=== PATIENT | female | born 1985 | race Caucasian/White ===

== ENCOUNTER 2016-09-03 12:43 | Inpatient (IN) | payer OTHER ==
[2016-09-03 16:56] VITALS: BMI 26.6
--- NOTE | 2016-09-03 19:03 | HP ---
CIWA Score - CIWA Score Nausea/Vomitin-Mild Nausea/No Vomiting Muscle Tremors: 4-Moderate,w/Arms Extend Anxiety: 4-Mod. Anxious/Guarded Agitation: 4-Moderately Restless Paroxysmal Sweats: 1-Minimal Palms Moist Orientation: 0-Oriented Tacttile Disturbances: 0-None Auditory Disturbances: 0-None Visual Disturbances: 0-None Headache: 1-Very Mild CIWA-Ar Total Score: 15 Admission ROS BHS - HPI Chief Complaint: WITHDRAWAL SX Allergies/Adverse Reactions: Allergies Allergy/AdvReac Type Severity Reaction Status Date / Time No Known Allergies Allergy Verified 09/03/16 18:59 History of Present Illness: 31 YEARS OLD FEMALE WITH LONG HISTORY OF XANAX NICOTINE DEPENDENCE DENIES MEDICAL ISSUE HAS DEPRESSION IS ADMITTED TO DETOX Exam Limitations: No Limitations - Ebola screening Have you traveled outside of the country in the last 21 days: No Have you had contact with anyone from an Ebola affected area: No Have you been sick,other than usual withdrawal symptoms: No Do you have a fever: No - Review of Systems Constitutional: Chills, Changes in sleep, Weight Stable EENT: reports: No Symptoms Reported Respiratory: reports: No Symptoms reported Cardiac: reports: No Symptoms Reported GI: reports: Nausea, Poor Fluid Intake, Abdominal cramping : reports: No Symptoms Reported Musculoskeletal: reports: No Symptoms Reported, Back Pain, Joint Pain, Muscle Pain, Neck Pain Integumentary: reports: No Symptoms Reported Neuro: reports: Tremors Endocrine: reports: No Symptoms Reported Hematology: reports: No Symptoms Reported Psychiatric: reports: Judgement Intact, Orientated x3, Depressed Other Systems: Reviewed and Negative Patient History - Patient Medical History Hx Anemia: No Hx Asthma: No Hx Chronic Obstructive Pulmonary Disease (COPD): No Hx Cancer: No Hx Cardiac Disorders: No Hx Congestive Heart Failure: No Hx Hypertension: No Hx Hypercholesterolemia: No Hx Pacemaker: No HX Cerebrovascular Accident: No Hx Seizures: No Hx Dementia: No Hx Diabetes: No Hx Gastrointestinal Disorders: No Hx Liver Disease: No Hx Genitourinary Disorders: No Hx Sexually Transmitted Disorders: No Hx Renal Disease (ESRD): No Hx Thyroid Disease: No Hx Human Immunodeficiency Virus (HIV): No Hx Hepatitis C: Yes Hx Depression: Yes Hx Suicide Attempt: No Hx Bipolar Disorder: No Hx Schizophrenia: No - Patient Surgical History Past Surgical History: Yes Hx Section: Yes (2013) Anesthesia Reaction: No - PPD History Previous Implant?: Yes Documented Results: Negative w/o proof Implanted On Prior [facility] Admission?: No PPD to be Administered?: Yes - Reproductive History Patient is a Female of Child Bearing Age (11 -55 yrs old): Yes Last Menstrual Period: 08/12/16 Patient : No - Smoking Cessation Smoking history: Current every day smoker Have you smoked in the past 12 months: Yes Aproximately how many cigarettes per day: 4 Cigars Per Day: 0 Hx Chewing Tobacco Use: No Initiated information on smoking cessation: Yes 'Breaking Loose' booklet given: 09/03/16 - Substance & Tx. History Hx Alcohol Use: No Hx Substance Use: Yes Substance Use Type: Cocaine, Opiates, Tranquilizers Hx Substance Use Treatment: Yes - Substances Abused Alprazolam (Xanax) Route: Oral Frequency: Daily Amount used: 8 MG Age of first use: 30 Date of Last Use: 09/02/16 Cocaine Route: Smoking Frequency: 1-2 times per week Amount used: 200$ Age of first use: 29 Date of Last Use: 09/02/16 Family Disease History - Family Disease History Family History: Unremarkable Admission Physical Exam BHS - Vital Signs Vital Signs: Vital Signs - 24 hr 09/03/16 16:53 Temperature 96.1 F L Pulse Rate 67 Respiratory 20 Rate Blood Pressure 149/86 - Physical General Appearance: Yes: Nourished, Appropriately Dressed, Mild Distress, Tremorous, Irritable, Sweating, Anxious HEENTM: Yes: Hearing grossly Normal, Normal ENT Inspection, Normocephalic, Normal Voice Respiratory: Yes: Chest Non-Tender, Lungs Clear, Normal Breath Sounds, No Respiratory Distress, No Accessory Muscle Use Neck: Yes: Supple, Trachea in good position Breast: Yes: Breasts Symetrical Cardiology: Yes: Regular Rhythm, Regular Rate, S1, S2 Abdominal: Yes: Non Tender, Soft Genitourinary: Yes: Within Normal Limits Back: Yes: Normal Inspection Musculoskeletal: Yes: full range of Motion, Gait Steady Extremities: Yes: Normal Inspection, Normal Range of Motion, Non-Tender, Tremors Neurological: Yes: Alert, Motor Strength 5/5, Normal Response, Depressed Affect Integumentary: Yes: Warm Lymphatic: Yes: Within Normal Limits - Diagnostic (1) Sedative, hypnotic or anxiolytic dependence with withdrawal, uncomplicated Current Visit: Yes Status: Acute (2) Nicotine dependence Current Visit: Yes Status: Acute Qualifiers: Nicotine product type: cigarettes Substance use status: in withdrawal Qualified Code(s): F17.213 - Nicotine dependence, cigarettes, with withdrawal (3) Hepatitis C antibody test positive Current Visit: Yes Status: Chronic Comment: SCHEDULE TO TREAT (4) Depression (emotion) Current Visit: Yes Status: Suspected Qualifiers: Depression Type: dysthymia Qualified Code(s): F34.1 - Dysthymic disorder (5) Methadone maintenance therapy patient Current Visit: Yes Status: Chronic Comment: 165 MG VERIFICATION PENDING Cleared for Admission S - Detox or Rehab [facility] Level of Care: Medically Managed Detox Regimen/Protocol: Valium S Breath Alcohol Content Breath Alcohol Content: 0 Urine Pregancy Test - Result Urine Test Results: Negative- NO Line Present Urine Drug Screen - Results Drug Screen Negative: No Urine Drug Screen Results: HOLGER-Cocaine, OPI-Opiates, BZO-Benzodiazepines, MTD- Methadone
[2016-09-03] MEDS ORDERED: MAG HYDROX/AL HYDROX/SIMETH 30 ML UNIT-DOSE CUP PO PRN (19:10)
[2016-09-03] MEDS ORDERED: P-EPHED 60MG/TRIPROLIDI 2.5MG TABLET PO PRN (19:10)
[2016-09-03] MEDS ORDERED: MAGNESIUM HYDROX 2400MG/30ML ORAL SUSPENSION 30 ML CUP PO PRN (19:10)
[2016-09-03] MEDS ORDERED: LOPERAMIDE HCL 2 MG CAPSULE PO PRN (19:10)
[2016-09-03] MEDS ORDERED: ACETAMINOPHEN 325 MG TABLET (FP) PO PRN (19:10)
[2016-09-03] MEDS ORDERED: diazePAM 5 MG TABLET PO ONE (19:10)
[2016-09-03] MEDS ORDERED: MAGNESIUM CITRATE 300 ML BOTTLE PO PRN (19:10)
[2016-09-03] MEDS ORDERED: MENTHOL/PHENOL 1 EACH UD MM PRN (19:10)
[2016-09-03] MEDS ORDERED: IBUPROFEN 400 MG TABLET (FP) PO PRN (19:10)
[2016-09-03] MEDS ORDERED: hydrOXYzine PAMOATE 50 MG CAPSULE (FP) PO PRN (19:10)
[2016-09-03] MEDS: THIAMINE HCL 100 MG TABLET (FP) PO SCH (22:42)
[2016-09-03] MEDS: diphenhydrAMINE HCL 50 MG CAPSULE PO PRN (22:42)
[2016-09-03] MEDS: diazePAM 5 MG TABLET PO SCH (22:44)
[2016-09-04 00:20] LABS: URINE APPEARANCE CLOUDY; URINE BILIRUBIN NEGATIVE (NEGATIVE); URINE BLOOD NEGATIVE (NEGATIVE); URINE COLOR DKYELLOW; URINE GLUCOSE (UA) NEGATIVE (NEGATIVE); URINE KETONE 1+ (NEGATIVE); URINE NITRITE NEGATIVE (NEGATIVE); URINE PROTEIN NEGATIVE (NEGATIVE); URINE UROBILINOGEN NEGATIVE E.U./dl (0.2-1.0)
[2016-09-04 00:24] LABS: URINE LEUK ESTERASE 2+ (NEGATIVE)
[2016-09-04 00:27] LABS: URINE MUCUS MANY; URINE RBC 27 /hpf (0-3); URINE WBC 15 /hpf (3-5)
[2016-09-04] MEDS: diazePAM 5 MG TABLET PO SCH ×3 (05:21→22:30)
--- NOTE | 2016-09-04 06:50 | CONSULT ---
[facility] Psychiatric Consult - Data Date of interview: 09/04/16 Admission source: [facility] Identifying data: This is 31 years old female with no psychiatric hospitalization history intoxicated with: Cocaine, Xanax, Opioids and Nicotine Substance Abuse History: Urine Drug Screen Results: HOLGER-Cocaine, OPI-Opiates, BZO-Benzodiazepines, MTD-Methadone, reports 165mg per day history. - Smoking Cessation. Smoking history: Current every day smoker. Have you smoked in the past 12 months: Yes. Aproximately how many cigarettes per day: 4. Cigars Per Day: 0. Hx Chewing Tobacco Use: No. Initiated information on smoking cessation : Yes. 'Breaking Loose' booklet given: 09/03/16. - Substance & Tx. History. Hx Alcohol Use: No. Hx Substance Use: Yes. Substance Use Type: Cocaine, Opiates, Tranquilizers. Hx Substance Use Treatment: Yes. - Substances Abused. Alprazolam (Xanax). Route: Oral. Frequency: Daily. Amount used: 8 MG. Age of first use: 30. Date of Last Use: 09/02/16. Cocaine. Route: Smoking. Frequency: 1-2 times per week. Amount used: 200$. Age of first use: 29. Date of Last Use: 09/02/16 Medical History: HepC+, MMTP 165 per day history Psychiatric History: Patient reports history of depression, reports no medications taking prior to admission Physical/Sexual Abuse/Trauma History: Denies Additional Comment: Urine Drug Screen Results: HOLGER-Cocaine, OPI-Opiates, BZO- Benzodiazepines, MTD-Methadone. Observation. Detox Unit Care Protocol Mental Status Exam - Mental Status Exam Alert and Oriented to: Person Cognitive Function: Fair Patient Appearance: Unkempt Mood: Sad Affect: Flat Patient Behavior: Sedated Speech Pattern: Delayed Voice Loudness: Mildly Soft/Quiet Thought Process: Circumstantial Thought Disorder: Being Controlled Hallucinations: Denies Suicidal Ideation: Denies Homicidal Ideation: Denies Insight/Judgement: Fair Sleep: Difficulty falling asleep Appetite: Fair Muscle strength/Tone: Mild Hypotonicity Gait/Station: Shuffling Additional Comments: Observation. Detox Unit Care Protocol Psychiatric Findings - Problem List ([place] 1, 2,3) (1) Nicotine dependence Current Visit: Yes Status: Acute Qualifiers: Nicotine product type: cigarettes Substance use status: in withdrawal Qualified Code(s): F17.213 - Nicotine dependence, cigarettes, with withdrawal (2) Sedative, hypnotic or anxiolytic dependence with withdrawal, uncomplicated Current Visit: Yes Status: Acute (3) Methadone maintenance therapy patient Current Visit: Yes Status: Chronic Comment: 165 MG VERIFICATION PENDING (4) Opioid dependence Current Visit: Yes Status: Acute - Initial Treatment Plan Initial Treatment Plan: Observation. Detox Unit Care Protocol
[2016-09-04 10:03] LABS: MCH 27.2 pg (25.7-33.7); MCHC 33.7 g/dl (32.0-36.0); MEAN CELL VOLUME 80.8 fl (80-96); MEAN PLT VOLUME 9.4 fl (7.5-11.1); PLATELET COUNT 295 K/MM3 (134-434); RDW 13.4 % (11.6-15.6); WHITE BLOOD COUNT 8.7 K/mm3 (4.0-10.0)
[2016-09-04] MEDS ORDERED: METHADONE HCL 10 MG TABLET PO ONE (10:25)
[2016-09-04] MEDS: PRENATAL VITAMINS W/ FOLIC ACID TABLET (FP) PO SCH (10:26)
[2016-09-04] MEDS: NICOTINE 14 MG/24 HOURS TOPICAL PATCH TD SCH (10:27)
[2016-09-04] MEDS: diazePAM 5 MG TABLET PO PRN ×2 (10:31→18:26)
[2016-09-04] MEDS ORDERED: METHADONE 160 MG, METHADONE 5 MG PO ONE (10:35)
[2016-09-04 10:45] LABS: ALBUMIN 4.6 g/dl (3.4-5.0); ALK PHOS 85 U/L (45-117); ANION GAP 12 (8-16); BILIRUBIN,TOTAL 0.6 mg/dL (0.2-1.0); CALCIUM 9.7 mg/dL (8.5-10.1); CO2 25 mmol/L (21-32); CREATININE 0.8 mg/dL (0.55-1.02); GLUCOSE,RANDOM 95 mg/dL (74-106); SGOT/AST 17 U/L (15-37); SGPT/ALT 15 U/L (12-78); TOT PROT 8.2 g/dl (6.4-8.2)
[2016-09-04] MEDS ORDERED: METHADONE HCL 40 MG DISPERSABLE TABLET ONE (10:49)
[2016-09-04] MEDS ORDERED: METHADONE HCL 5 MG TABLET ONE (10:50)
--- NOTE | 2016-09-04 11:00 | PN ---
S CIWA - CIWA Score Nausea/Vomitin Muscle Tremors: 3 Anxiety: 3 Agitation: 3 Paroxysmal Sweats: 2 Orientation: 0-Oriented Tacttile Disturbances: 1-Very Mild Itch/Numbness Auditory Disturbances: 1-Very Mild Visual Disturbances: 1-Very Mild Sensitivity Headache: 2-Mild CIWA-Ar Total Score: 19 S Progress Note (SOAP) Subjective: ALERT,IRRITABLE,ANXIOUS,TREMOR,INTERRUPTED SLEEP,PAIN IN THE BODY,NASAL CONGESTION,SEASONAL ALLERGY Objective: 09/04/16 10:56 Vital Signs Temperature 98.2 F 09/04/16 10:01 Pulse Rate 69 09/04/16 10:01 Respiratory Rate 16 09/04/16 10:01 Blood Pressure 136/82 09/04/16 10:01 O2 Sat by Pulse Oximetry (%) EKG NSR,INVERTED T IN V2 NO CHEST PAIN,NO SOB,NO DIZZINESS Laboratory Last Values WBC 8.7 K/mm3 (4.0-10.0) 09/04/16 06:00 RBC 4.43 M/mm3 (3.60-5.2) 09/04/16 06:00 Hgb 12.1 GM/dL (10.7-15.3) 09/04/16 06:00 Hct 35.8 % (32.4-45.2) 09/04/16 06:00 MCV 80.8 fl (80-96) 09/04/16 06:00 MCHC 33.7 g/dl (32.0-36.0) 09/04/16 06:00 RDW 13.4 % (11.6-15.6) 09/04/16 06:00 Plt Count 295 K/MM3 (134-434) 09/04/16 06:00 MPV 9.4 fl (7.5-11.1) 09/04/16 06:00 Sodium 138 mmol/L (136-145) 09/04/16 06:00 Potassium 3.7 mmol/L (3.5-5.1) 09/04/16 06:00 Chloride 101 mmol/L (98-107) 09/04/16 06:00 Carbon Dioxide 25 mmol/L (21-32) 09/04/16 06:00 Anion Gap 12 (8-16) 09/04/16 06:00 BUN 6 mg/dL (7-18) L 09/04/16 06:00 Creatinine 0.8 mg/dL (0.55-1.02) 09/04/16 06:00 Creat Clearance w eGFR > 60 (>60) 09/04/16 06:00 Random Glucose 95 mg/dL (74-106) 09/04/16 06:00 Calcium 9.7 mg/dL (8.5-10.1) 09/04/16 06:00 Total Bilirubin 0.6 mg/dL (0.2-1.0) 09/04/16 06:00 AST 17 U/L (15-37) 09/04/16 06:00 ALT 15 U/L (12-78) 09/04/16 06:00 Alkaline Phosphatase 85 U/L (45-117) 09/04/16 06:00 Total Protein 8.2 g/dl (6.4-8.2) 09/04/16 06:00 Albumin 4.6 g/dl (3.4-5.0) 09/04/16 06:00 Urine Color Dkyellow 09/03/16 23:16 Urine Appearance Cloudy 09/03/16 23:16 Urine pH 6.0 (5.0-8.0) 09/03/16 23:16 Urine Protein Negative (NEGATIVE) 09/03/16 23:16 Urine Glucose (UA) Negative (NEGATIVE) 09/03/16 23:16 Urine Ketones 1+ (NEGATIVE) H 09/03/16 23:16 Urine Blood Negative (NEGATIVE) 09/03/16 23:16 Urine Nitrite Negative (NEGATIVE) 09/03/16 23:16 Urine Bilirubin Negative (NEGATIVE) 09/03/16 23:16 Urine Urobilinogen Negative E.U./dl (0.2-1.0) 09/03/16 23:16 Ur Leukocyte Esterase 2+ (NEGATIVE) H 09/03/16 23:16 Urine RBC 27 /hpf (0-3) 09/03/16 23:16 Urine WBC 15 /hpf (3-5) 09/03/16 23:16 Ur Epithelial Cells Many /hpf (FEW) 09/03/16 23:16 Urine Mucus Many 09/03/16 23:16 Assessment: 09/04/16 10:59 WITHDRAWAL SYMPTOM Plan: CONTINUE DETOX,REPEAT UA TODAY,ENCOURAGE ORAL FLUID
--- NOTE | 2016-09-04 11:42 | EKG ---
Test Reason : Blood Pressure : / mmHG Vent. Rate : 063 BPM Atrial Rate : 063 BPM P-R Int : 140 ms QRS Dur : 092 ms QT Int : 458 ms P-R-T Axes : 015 065 050 degrees QTc Int : 468 ms NORMAL SINUS RHYTHM MINIMAL VOLTAGE CRITERIA FOR LVH, MAY BE NORMAL VARIANT SEPTAL INFARCT , AGE UNDETERMINED ABNORMAL ECG NO PREVIOUS ECGS AVAILABLE Confirmed by FABIANA ALEXANDRE MD ([id number]) on 09/04/2016 11:42:07 AM Referred By: Confirmed By:FABIANA ALEXANDRE MD
[2016-09-04] MEDS: diphenhydrAMINE HCL 25 MG CAPSULE (FP) PO PRN (14:13)
[2016-09-04] MEDS: diphenhydrAMINE HCL 50 MG CAPSULE PO PRN (22:30)
[2016-09-04] MEDS: THIAMINE HCL 100 MG TABLET (FP) PO SCH (22:30)
[2016-09-04] MEDS: NICOTINE POLACRILEX 2 MG GUM BC PRN (22:30)
[2016-09-05] MEDS ORDERED: METHADONE HCL 5 MG TABLET ONE (05:30)
[2016-09-05] MEDS ORDERED: METHADONE HCL 40 MG DISPERSABLE TABLET ONE (05:30)
[2016-09-05] MEDS: METHADONE 160 MG, METHADONE 5 MG PO SCH (05:41)
[2016-09-05] MEDS: diazePAM 5 MG TABLET PO PRN (05:45)
[2016-09-05] MEDS ORDERED: METHADONE HCL 10 MG TABLET PO SCH (06:00)
[2016-09-05] MEDS: NICOTINE POLACRILEX 2 MG GUM BC PRN ×2 (07:23→22:48)
[2016-09-05] MEDS: PRENATAL VITAMINS W/ FOLIC ACID TABLET (FP) PO SCH (10:27)
[2016-09-05] MEDS: diazePAM 5 MG TABLET PO SCH ×2 (10:27→22:48)
[2016-09-05] MEDS: NICOTINE 14 MG/24 HOURS TOPICAL PATCH TD SCH (10:27)
[2016-09-05] MEDS: CYCLOBENZAPRINE HCL 10 MG TABLET (FP) PO PRN ×2 (10:29→22:49)
[2016-09-05] MEDS: diphenhydrAMINE HCL 25 MG CAPSULE (FP) PO PRN (10:29)
--- NOTE | 2016-09-05 10:33 | PN ---
S CIWA - CIWA Score Nausea/Vomitin Muscle Tremors: 3 Anxiety: 3 Agitation: 2 Paroxysmal Sweats: 1-Minimal Palms Moist Orientation: 0-Oriented Tacttile Disturbances: 1-Very Mild Itch/Numbness Auditory Disturbances: 1-Very Mild Visual Disturbances: 1-Very Mild Sensitivity Headache: 2-Mild CIWA-Ar Total Score: 17 BHS Progress Note (SOAP) Subjective: ALERT,IRRITABLE,ANXIOUS,INTERRUPTED SLEEP,TREMOR,PAIN IN THE BODY AND BACK Objective: 09/05/16 10:31 Vital Signs Temperature 98.4 F 09/05/16 09:35 Pulse Rate 75 09/05/16 09:35 Respiratory Rate 18 09/05/16 09:35 Blood Pressure 131/81 09/05/16 09:35 O2 Sat by Pulse Oximetry (%) Assessment: 09/05/16 10:32 WITHDRAWAL SYMPTOM Plan: CONTINUE DETOX,REPEAT UA PENDING
[2016-09-05 15:12] LABS: URINE APPEARANCE SLCLOUDY; URINE BILIRUBIN NEGATIVE (NEGATIVE); URINE BLOOD NEGATIVE (NEGATIVE); URINE COLOR YELLOW; URINE GLUCOSE (UA) NEGATIVE (NEGATIVE); URINE KETONE NEGATIVE (NEGATIVE); URINE NITRITE NEGATIVE (NEGATIVE); URINE PROTEIN NEGATIVE (NEGATIVE); URINE UROBILINOGEN 4.0 E.U/dl E.U./dl (0.2-1.0)
[2016-09-05 15:29] LABS: URINE LEUK ESTERASE 1+ (NEGATIVE)
[2016-09-05 15:57] LABS: CALCIUM OXALATE CRYSTALS RARE /hpf (NONE SEEN); URINE MUCUS MODERATE; URINE RBC 2 /hpf (0-3); URINE WBC 1 /hpf (3-5)
[2016-09-05] MEDS: THIAMINE HCL 100 MG TABLET (FP) PO SCH (22:48)
[2016-09-05] MEDS: diphenhydrAMINE HCL 50 MG CAPSULE PO PRN (22:50)
[2016-09-06] MEDS ORDERED: METHADONE HCL 40 MG DISPERSABLE TABLET ONE (03:50)
[2016-09-06] MEDS ORDERED: METHADONE HCL 5 MG TABLET ONE (03:50)
[2016-09-06] MEDS: METHADONE 160 MG, METHADONE 5 MG PO SCH (05:06)
[2016-09-06] MEDS: diazePAM 5 MG TABLET PO PRN ×2 (05:09→17:35)
[2016-09-06] MEDS: guaiFENesin/D-METHORPHAN HB 10 ML UNIT-DOSE CUPS PO PRN ×2 (05:10→17:33)
--- NOTE | 2016-09-06 10:24 | PN ---
S Progress Note (SOAP) Subjective: ALERT,IRRITABLE,ANXIOUS,INTERRUPTED SLEEP Objective: 09/06/16 10:24 Vital Signs Temperature 100.8 F H 09/06/16 10:02 Pulse Rate 105 H 09/06/16 10:02 Respiratory Rate 20 09/06/16 10:02 Blood Pressure 121/69 09/06/16 10:02 O2 Sat by Pulse Oximetry (%) Assessment: 09/06/16 10:25 WITHDRAWAL SYMPTOM Plan: CONTINUE DETOX,DISCHARGE IN AM
[2016-09-06] MEDS: NICOTINE 14 MG/24 HOURS TOPICAL PATCH TD SCH (10:28)
[2016-09-06] MEDS: diazePAM 5 MG TABLET PO SCH ×2 (10:28→22:23)
[2016-09-06] MEDS: PRENATAL VITAMINS W/ FOLIC ACID TABLET (FP) PO SCH (10:28)
[2016-09-06] MEDS: CYCLOBENZAPRINE HCL 10 MG TABLET (FP) PO PRN ×2 (17:35→22:23)
[2016-09-06] MEDS: THIAMINE HCL 100 MG TABLET (FP) PO SCH (22:23)
[2016-09-06] MEDS: diphenhydrAMINE HCL 50 MG CAPSULE PO PRN (22:23)
[2016-09-06] MEDS: NICOTINE POLACRILEX 2 MG GUM BC PRN (22:26)
[2016-09-07] MEDS ORDERED: METHADONE HCL 5 MG TABLET ONE (04:23)
[2016-09-07] MEDS ORDERED: METHADONE HCL 40 MG DISPERSABLE TABLET ONE (04:23)
[2016-09-07] MEDS: METHADONE 160 MG, METHADONE 5 MG PO SCH (05:14)
[2016-09-07] MEDS: CYCLOBENZAPRINE HCL 10 MG TABLET (FP) PO PRN (05:16)
[2016-09-07] MEDS: NICOTINE POLACRILEX 2 MG GUM BC PRN (05:16)
[2016-09-07 06:11] VITALS: BP 129/73; PULSE 81; TEMP 98.2
--- NOTE | 2016-09-07 08:08 | PN ---
S Progress Note (SOAP) Subjective: ALERT,NO COMPLAINT Objective: 09/07/16 08:06 Vital Signs Temperature 98.2 F 09/07/16 06:10 Pulse Rate 81 09/07/16 06:10 Respiratory Rate 18 09/07/16 06:10 Blood Pressure 129/73 09/07/16 06:10 O2 Sat by Pulse Oximetry (%) Assessment: 09/07/16 08:06 DETOX COMPLETED,NO WITHDRAWAL SYMPTOM Plan: DISCHARGE TODAY,FOLLOW UP WITH AFTER CARE PROGRAM ARRANGEMENT
--- NOTE | 2016-09-07 08:10 | DS ---
[facility] Detox Discharge Summary Admission Date: 09/03/16 Discharge Date: 09/07/16 - History Present History: Sedative Dependence, MMTP Additional Comments: FOLLOW UP WITH AFTER CARE PROGRAM ARRANGEMENT Pertinent Past History: NICOTINE DEPENDENCE HEPATITIS C - Physical Exam Results Vital Signs: Vital Signs Temperature 98.2 F 09/07/16 06:10 Pulse Rate 81 09/07/16 06:10 Respiratory Rate 18 09/07/16 06:10 Blood Pressure 129/73 09/07/16 06:10 O2 Sat by Pulse Oximetry (%) Pertinent Admission Physical Exam Findings: WITHDRAWAL SYMPTOM - Treatment Hospital Course: Detox Protocol Followed, Detoxed Safely, Responded well, Discharged Condition Good Patient has Accepted a Rehab Referral to: [facility]ED - Medication Discharge Medications: Ambulatory Orders Methadone [Dolophine -] 165 mg PO DAILY 09/03/16 - AMA Did Patient Leave Against Medical Advice: No
[2016-09-07] MEDS ORDERED: diazePAM 5 MG TABLET PO SCH (10:00)
== END 2016-09-07 06:48 | disposition home or self-care (01) | DRG 773 ==
LOC: YASAS 12:43 → Y6N 19:20
PROVIDERS: ADMIT Internal Medicine; ATTEND Internal Medicine
PROC: HZ2ZZZZ Detoxification Services for Substance Abuse Treatment (ICD-10-PCS; principal; 2016-09-03)
DX: F13.230 Sedative, hypnotic or anxiolytic dependence with withdrawal, uncomplicated (principal); F11.20 Opioid dependence, uncomplicated; F17.213 Nicotine dependence, cigarettes, with withdrawal; F34.1 Dysthymic disorder; B18.2 Chronic viral hepatitis C
CPT/HCPCS: 36415; 80053; 81003; 81015; 85027; 86593; 93005; 93010

== ENCOUNTER 2017-01-15 12:16 | Inpatient (IN) | payer OTHER ==
[2017-01-15 13:28] VITALS: BMI 24.9
--- NOTE | 2017-01-15 15:29 | HP ---
CIWA Score - CIWA Score Nausea/Vomitin-Int. Nausea w/Dry Heave Muscle Tremors: 3 Anxiety: 4-Mod. Anxious/Guarded Agitation: 2 Paroxysmal Sweats: 3 Orientation: 0-Oriented Tacttile Disturbances: 2-Mild Itch/Numbness/Burn Auditory Disturbances: 0-None Visual Disturbances: 2-Mild Sensitivity Headache: 2-Mild CIWA-Ar Total Score: 22 Admission ROS S - HPI Chief Complaint: "I need to Detox and then hopefully get into a long-term rehab program." Pt. is here to Detox from Alcohol. Allergies/Adverse Reactions: Allergies Allergy/AdvReac Type Severity Reaction Status Date / Time No Known Allergies Allergy Verified 09/03/16 18:59 History of Present Illness: Pt, is a 31 YO female here to Detox from alcohol. Pt. has had 1 previous Detox admission at [facility] (08/2016). [facility]. [facility] a [facility] ([place], [place] Daily Dose: 165 mg PO Daily; Last Day medicated: 01/15/2017, Verification Pending). - Ebola screening Have you traveled outside of the country in the last 21 days: No Have you had contact with anyone from an Ebola affected area: No Have you been sick,other than usual withdrawal symptoms: No Do you have a fever: No - Review of Systems Constitutional: Chills, Diaphoresis, Fever, Loss of Appetite, Malaise, Night Sweats, Changes in sleep EENT: reports: Blurred Vision, Hearing Loss (Partial, Right Ear.), Dental Problems (Broken tooth, Loweer Left side. Patient reports that she is okay to chew solid food.) Respiratory: reports: Cough Cardiac: reports: No Symptoms Reported, Other (Murmur, Since .) GI: reports: Nausea, Poor Appetite, Vomiting, Indigestion, Abdominal cramping : reports: Urgency, Other (Patient reports "foul odor" to urine. URINE C + S to be ordered along with Admission UA.) Musculoskeletal: reports: Back Pain, Joint Pain, Muscle Pain, Joint Stiffness Integumentary: reports: Sweating Neuro: reports: Headache (Occasional migraines.), Numbness (Occasional in bilateral arms.), Tingling (Occasional in bilateral arms.), Tremors Endocrine: reports: No Symptoms Reported Hematology: reports: Anemia (Iron-Deficiency type, in past.), Easy Bruising Psychiatric: reports: Judgement Intact, Orientated x3, Anxious, Depressed ( Primarily due to Drug use; Zoloft and Wellbutrin in past; not currently. Pt. declines Psych. consultation for this Detox admission.) Other Systems: Reviewed and Negative Patient History - Patient Medical History Hx Anemia: Yes (Iron-Deficiency type; has taken Iron supplements in past.) Hx Asthma: No Hx Chronic Obstructive Pulmonary Disease (COPD): No Hx Cancer: No Hx Cardiac Disorders: No Hx Congestive Heart Failure: No Hx Hypertension: No Hx Hypercholesterolemia: No Hx Pacemaker: No HX Cerebrovascular Accident: No Hx Seizures: No Hx Dementia: No Hx Diabetes: No Hx Gastrointestinal Disorders: No Hx Liver Disease: No Hx Genitourinary Disorders: No Hx Sexually Transmitted Disorders: No Hx Renal Disease (ESRD): No Hx Thyroid Disease: No Hx Human Immunodeficiency Virus (HIV): No (Last Tested: 12/2016: NEGATIVE.) Hx Hepatitis C: Yes (Diagnosed: 2011. Currently Undetactable Viral Load without Treatment.) Hx Depression: Yes (Medication in past; not current.) Hx Suicide Attempt: No (PATIENT DENIES CURRENT SI / HI.) Hx Bipolar Disorder: No Hx Schizophrenia: No Other Medical History: DENIES. - Patient Surgical History Past Surgical History: Yes Hx Neurologic Surgery: No Hx Cataract Extraction: No Hx Cardiac Surgery: No Hx Lung Surgery: No Hx Breast Surgery: No Hx Breast Biopsy: No Hx Abdominal Surgery: No Hx Appendectomy: No Hx Cholecystectomy: No Hx Genitourinary Surgery: No Hx Section: Yes (2013) Hx Orthopedic Surgery: Yes (Complete Compound Fracture, Right Arm, 1996.) Hx Hysterectomy: No Anesthesia Reaction: No - PPD History Previous Implant?: Yes Documented Results: Negative w/proof Implanted On Prior [facility] Admission?: Yes Date: 09/05/16 PPD to be Administered?: No - Reproductive History Patient is a Female of Child Bearing Age (11 -55 yrs old): Yes Last Menstrual Period: 12/30/16 Patient : No - Smoking Cessation Smoking history: Current every day smoker Have you smoked in the past 12 months: Yes Aproximately how many cigarettes per day: 20 Cigars Per Day: 0 Hx Chewing Tobacco Use: No Initiated information on smoking cessation: Yes 'Breaking Loose' booklet given: 01/15/17 (GIVEN TO PATIENT.) - Substance & Tx. History Hx Alcohol Use: Yes Hx Substance Use: Yes Substance Use Type: Alcohol, Cocaine, Opiates, Tranquilizers Hx Substance Use Treatment: Yes (1 Previous Detox at [facility] (09/14).REHABS: [facility]) - Substances Abused Alcohol Route: Oral Frequency: Daily Amount used: 1 Pint Vodka; 2 - 24 oz. beers. Age of first use: 15 Date of Last Use: 01/15/17 Alprazolam (Xanax) Route: Oral Frequency: 3-6 times per week Amount used: 3-4 MG Age of first use: 29 Date of Last Use: 01/12/17 Benzodiazepine (Klonopin) Route: Oral Frequency: 3-6 times per week Amount used: 4 - 6 MG Age of first use: 29 Date of Last Use: 01/15/17 Crack Route: Smoking Frequency: 3-6 times per week Amount used: 1 Gram. Age of first use: 26 Date of Last Use: 01/13/17 Family Disease History - Family Disease History Family Disease History: Heart Disease: Grandparent (Breat, In Remission, CVA; Other: Brain, .; HTN), CA: Grandparent, Other: Mother (Rheumatoid Arthritis.), Sister (Mood Disorder; Substance Abuse.) Admission Physical Exam [facility] - Vital Signs Vital Signs: Vital Signs - 24 hr 01/15/17 13:21 Temperature 96.7 F L Pulse Rate 74 Respiratory 18 Rate Blood Pressure 126/70 - Physical General Appearance: Yes: Nourished, Appropriately Dressed, Mild Distress, Tremorous, Anxious HEENTM: Yes: Hearing grossly Normal, Normocephalic, Normal Voice, SHARON, Pharynx Normal Respiratory: Yes: Chest Non-Tender, Lungs Clear, No Respiratory Distress, No Accessory Muscle Use Neck: Yes: No masses,lesions,Nodules, Supple, Trachea in good position Breast: Yes: Breast Exam Deferred Cardiology: Yes: Regular Rhythm, Regular Rate, S1, S2 Abdominal: Yes: Normal Bowel Sounds, Non Tender, Flat, Soft Genitourinary: Yes: Uregency, Pain (Unusual odor.) Back: Yes: Decreased Range of Motion Musculoskeletal: Yes: Gait Steady, Back pain, Joint Stiffness, Muscle Pain Extremities: Yes: Tremors Neurological: Yes: Fully Oriented, Alert, Normal Mood/Affect, Normal Response Integumentary: Yes: Normal Color, Dry, Warm Lymphatic: Yes: Within Normal Limits - Diagnostic (1) Nicotine dependence Current Visit: Yes Status: Chronic Qualifiers: Nicotine product type: cigarettes Substance use status: uncomplicated Qualified Code(s): F17.210 - Nicotine dependence, cigarettes, uncomplicated; F17.210 - Nicotine dependence, cigarettes, uncomplicated (2) Hepatitis C antibody test positive Current Visit: Yes Status: Chronic (3) Methadone maintenance therapy patient Current Visit: Yes Status: Chronic Comment: 165 MG VERIFICATION PENDING (4) Depression (emotion) Current Visit: Yes Status: Acute Qualifiers: Depression Type: unspecified Qualified Code(s): F32.9 - Major depressive disorder, single episode, unspecified; F32.9 - Major depressive disorder, single episode, unspecified; F32.9 - Major depressive disorder, single episode, unspecified (5) Sedative, hypnotic or anxiolytic dependence, uncomplicated Current Visit: Yes Status: Chronic (6) Cocaine dependence, uncomplicated Current Visit: Yes Status: Acute (7) Alcohol dependence with uncomplicated withdrawal Current Visit: Yes Status: Acute (8) Opioid dependence on agonist therapy Current Visit: Yes Status: Chronic Cleared for Admission [facility] - Detox or Rehab [facility] Level of Care: Medically Managed Detox Regimen/Protocol: Valium [facility] Breath Alcohol Content Breath Alcohol Content: 0 Urine Pregancy Test - Result Urine Test Results: Negative- NO Line Present Urine Drug Screen - Results Drug Screen Negative: No Urine Drug Screen Results: HOLGER-Cocaine, MTD-Methadone
[2017-01-15] MEDS ORDERED: ACETAMINOPHEN 325 MG TABLET (FP) PO PRN (16:16)
[2017-01-15] MEDS ORDERED: hydrOXYzine PAMOATE 50 MG CAPSULE (FP) PO PRN (16:16)
[2017-01-15] MEDS ORDERED: P-EPHED 60MG/TRIPROLIDI 2.5MG TABLET PO PRN (16:16)
[2017-01-15] MEDS ORDERED: MAGNESIUM CITRATE 300 ML BOTTLE PO PRN (16:16)
[2017-01-15] MEDS ORDERED: IBUPROFEN 400 MG TABLET (FP) PO PRN (16:16)
[2017-01-15] MEDS ORDERED: guaiFENesin/D-METHORPHAN HB 10 ML UNIT-DOSE CUPS PO PRN (16:16)
[2017-01-15] MEDS ORDERED: MAG HYDROX/AL HYDROX/SIMETH 30 ML UNIT-DOSE CUP PO PRN (16:16)
[2017-01-15] MEDS ORDERED: MAGNESIUM HYDROX 2400MG/30ML ORAL SUSPENSION 30 ML CUP PO PRN (16:16)
[2017-01-15] MEDS ORDERED: diazePAM 5 MG TABLET PO ONE (16:16)
[2017-01-15] MEDS ORDERED: MENTHOL/PHENOL 1 EACH UD MM PRN (16:16)
[2017-01-15] MEDS ORDERED: LOPERAMIDE HCL 2 MG CAPSULE PO PRN (16:16)
[2017-01-15] MEDS: NICOTINE 21 MG/24 HOURS TOPICAL PATCH TD SCH (18:49)
[2017-01-15 20:46] LABS: URINE APPEARANCE SLCLOUDY; URINE BILIRUBIN NEGATIVE (NEGATIVE); URINE BLOOD NEGATIVE (NEGATIVE); URINE COLOR YELLOW; URINE GLUCOSE (UA) NEGATIVE (NEGATIVE); URINE KETONE NEGATIVE (NEGATIVE); URINE NITRITE POSITIVE (NEGATIVE); URINE PROTEIN NEGATIVE (NEGATIVE); URINE UROBILINOGEN NEGATIVE mg/dL (0.2-1.0)
[2017-01-15 21:18] LABS: URINE BACTERIA RARE /hpf (NONE SEEN); URINE MUCUS RARE; URINE RBC <1 /hpf (0-3); URINE WBC 15 /hpf (3-5)
[2017-01-15] MEDS: diazePAM 5 MG TABLET PO SCH (22:26)
[2017-01-15] MEDS: THIAMINE HCL 100 MG TABLET (FP) PO SCH (22:26)
[2017-01-15] MEDS: CYCLOBENZAPRINE HCL 10 MG TABLET (FP) PO PRN (22:26)
[2017-01-15] MEDS: NICOTINE POLACRILEX 2 MG GUM BC PRN (22:27)
[2017-01-15] MEDS: diphenhydrAMINE HCL 50 MG CAPSULE PO PRN (22:27)
[2017-01-15 22:48] LABS: URINE LEUK ESTERASE 1+ (NEGATIVE)
[2017-01-16] MEDS: diazePAM 5 MG TABLET PO SCH ×3 (06:08→22:21)
[2017-01-16] MEDS: NICOTINE POLACRILEX 2 MG GUM BC PRN ×2 (06:11→13:02)
[2017-01-16] MEDS: CYCLOBENZAPRINE HCL 10 MG TABLET (FP) PO PRN ×2 (06:11→22:20)
[2017-01-16] MEDS ORDERED: METHADONE HCL 10 MG TABLET PO ONE (09:49)
[2017-01-16] MEDS ORDERED: METHADONE 160 MG, METHADONE 5 MG PO ONE (10:00)
[2017-01-16] MEDS ORDERED: METHADONE HCL 40 MG DISPERSABLE TABLET ONE (10:05)
[2017-01-16] MEDS ORDERED: METHADONE HCL 5 MG TABLET ONE (10:06)
[2017-01-16 10:50] LABS: MCH 26.6 pg (25.7-33.7); MCHC 32.7 g/dl (32.0-36.0); MEAN CELL VOLUME 81.2 fl (80-96); MEAN PLT VOLUME 8.6 fl (7.5-11.1); PLATELET COUNT 286 K/MM3 (134-434); RDW 13.7 % (11.6-15.6)
[2017-01-16] MEDS: PRENATAL VITAMINS W/ FOLIC ACID TABLET (FP) PO SCH (11:11)
[2017-01-16 11:12] LABS: ALBUMIN 3.6 g/dl (3.4-5.0); ALK PHOS 73 U/L (45-117); ANION GAP 5 (8-16); BILIRUBIN,TOTAL 0.4 mg/dL (0.2-1.0); CALCIUM 8.9 mg/dL (8.5-10.1); CO2 31 mmol/L (21-32); CREATININE 0.8 mg/dL (0.55-1.02); GLUCOSE,RANDOM 84 mg/dL (74-106); SGOT/AST 9 U/L (15-37); SGPT/ALT 14 U/L (12-78); TOT PROT 6.8 g/dl (6.4-8.2)
[2017-01-16] MEDS: NICOTINE 21 MG/24 HOURS TOPICAL PATCH TD SCH (11:12)
--- NOTE | 2017-01-16 11:54 | PN ---
S CIWA - CIWA Score Nausea/Vomitin-No Nausea/No Vomiting Muscle Tremors: 4-Moderate,w/Arms Extend Anxiety: 3 Agitation: 4-Moderately Restless Paroxysmal Sweats: 3 Orientation: 0-Oriented Tacttile Disturbances: 0-None Auditory Disturbances: 0-None Visual Disturbances: 0-None Headache: 0-None Present CIWA-Ar Total Score: 14 BHS Progress Note (SOAP) Subjective: sweats shakes interrupted sleep agitation anxiety body aches i have a uti Objective: 01/16/17 11:53 Vital Signs Temperature 96.9 F L 01/16/17 10:07 Pulse Rate 60 01/16/17 10:07 Respiratory Rate 18 01/16/17 10:07 Blood Pressure 108/65 01/16/17 10:07 O2 Sat by Pulse Oximetry (%) Laboratory Tests 01/15/17 01/16/17 01/16/17 20:00 07:00 07:00 WBC 7.0 RBC 4.42 Hgb 11.8 Hct 35.9 MCV 81.2 MCH 26.6 MCHC 32.7 RDW 13.7 Plt Count 286 MPV 8.6 Sodium 138 Potassium 4.3 Chloride 102 Carbon Dioxide 31 D Anion Gap 5 L BUN 10 D Creatinine 0.8 Creat Clearance w eGFR > 60 Random Glucose 84 Calcium 8.9 Total Bilirubin 0.4 D AST 9 L D ALT 14 Alkaline Phosphatase 73 Total Protein 6.8 Albumin 3.6 D Urine Color Yellow Urine Appearance Slcloudy Urine pH 6.0 Ur Specific [place] 1.010 Urine Protein Negative Urine Glucose (UA) Negative Urine Ketones Negative Urine Blood Negative Urine Nitrite Positive Urine Bilirubin Negative Urine Urobilinogen Negative Ur Leukocyte Esterase 1+ H Urine RBC <1 Urine WBC 15 Ur Epithelial Cells Few Urine Bacteria Rare Urine Mucus Rare RPR Titer 01/16/17 07:00 WBC RBC Hgb Hct MCV MCH MCHC RDW Plt Count MPV Sodium Potassium Chloride Carbon Dioxide Anion Gap BUN Creatinine Creat Clearance w eGFR Random Glucose Calcium Total Bilirubin AST ALT Alkaline Phosphatase Total Protein Albumin Urine Color Urine Appearance Urine pH Ur Specific [place] Urine Protein Urine Glucose (UA) Urine Ketones Urine Blood Urine Nitrite Urine Bilirubin Urine Urobilinogen Ur Leukocyte Esterase Urine RBC Urine WBC Ur Epithelial Cells Urine Bacteria Urine Mucus RPR Titer Nonreactive aaox3 ambulating no acute distress u/a pending Assessment: 01/16/17 11:56 withdrawal sx Plan: continue detox increase fluids macrobid ordered
--- NOTE | 2017-01-16 13:08 | EKG ---
Test Reason : Blood Pressure : / mmHG Vent. Rate : 057 BPM Atrial Rate : 057 BPM P-R Int : 132 ms QRS Dur : 090 ms QT Int : 464 ms P-R-T Axes : 023 069 053 degrees QTc Int : 451 ms SINUS BRADYCARDIA MODERATE VOLTAGE CRITERIA FOR LVH, MAY BE NORMAL VARIANT BORDERLINE ECG WHEN COMPARED WITH ECG OF 03-SEP-2016 19:14, CRITERIA FOR SEPTAL INFARCT ARE NO LONGER PRESENT Confirmed by PILAR STEWART, MARK ([id number]) on 01/16/2017 1:07:43 PM Referred By: Confirmed By:MARK QUEZADA MD
[2017-01-16] MEDS: NITROFURANTOIN MACROCRYSTAL 50 MG CAPSULE (FP) PO SCH ×3 (15:22→23:05)
[2017-01-16] MEDS: diazePAM 5 MG TABLET PO PRN (17:23)
[2017-01-16] MEDS: diphenhydrAMINE HCL 50 MG CAPSULE PO PRN (22:20)
[2017-01-16] MEDS: THIAMINE HCL 100 MG TABLET (FP) PO SCH (22:21)
[2017-01-17] MEDS ORDERED: METHADONE HCL 40 MG DISPERSABLE TABLET PO SCH (06:00)
[2017-01-17] MEDS ORDERED: METHADONE HCL 40 MG DISPERSABLE TABLET ONE (06:15)
[2017-01-17] MEDS: NITROFURANTOIN MACROCRYSTAL 50 MG CAPSULE (FP) PO SCH ×4 (06:15→23:05)
[2017-01-17] MEDS ORDERED: METHADONE HCL 5 MG TABLET ONE (06:15)
[2017-01-17] MEDS: METHADONE 160 MG, METHADONE 5 MG PO SCH (06:16)
[2017-01-17] MEDS: NICOTINE 21 MG/24 HOURS TOPICAL PATCH TD SCH (10:50)
[2017-01-17] MEDS: CYCLOBENZAPRINE HCL 10 MG TABLET (FP) PO PRN ×2 (10:50→23:07)
[2017-01-17] MEDS: diazePAM 5 MG TABLET PO SCH ×2 (10:50→23:05)
[2017-01-17] MEDS: PRENATAL VITAMINS W/ FOLIC ACID TABLET (FP) PO SCH (10:50)
[2017-01-17] MEDS: NICOTINE POLACRILEX 2 MG GUM BC PRN ×2 (10:50→17:01)
--- NOTE | 2017-01-17 12:43 | PN ---
S CIWA - CIWA Score Nausea/Vomitin-No Nausea/No Vomiting Muscle Tremors: 4-Moderate,w/Arms Extend Anxiety: 3 Agitation: 4-Moderately Restless Paroxysmal Sweats: 3 Orientation: 0-Oriented Tacttile Disturbances: 0-None Auditory Disturbances: 0-None Visual Disturbances: 0-None Headache: 0-None Present CIWA-Ar Total Score: 14 BHS Progress Note (SOAP) Subjective: irritable agitation anxiety sweats body aches Objective: 01/17/17 12:42 Vital Signs Temperature 97.7 F 01/17/17 09:59 Pulse Rate 58 L 01/17/17 09:59 Respiratory Rate 18 01/17/17 09:59 Blood Pressure 115/45 01/17/17 09:59 O2 Sat by Pulse Oximetry (%) Laboratory Tests 01/15/17 01/16/17 01/16/17 20:00 07:00 07:00 WBC 7.0 RBC 4.42 Hgb 11.8 Hct 35.9 MCV 81.2 MCH 26.6 MCHC 32.7 RDW 13.7 Plt Count 286 MPV 8.6 Sodium 138 Potassium 4.3 Chloride 102 Carbon Dioxide 31 D Anion Gap 5 L BUN 10 D Creatinine 0.8 Creat Clearance w eGFR > 60 Random Glucose 84 Calcium 8.9 Total Bilirubin 0.4 D AST 9 L D ALT 14 Alkaline Phosphatase 73 Total Protein 6.8 Albumin 3.6 D Urine Color Yellow Urine Appearance Slcloudy Urine pH 6.0 Ur Specific [place] 1.010 Urine Protein Negative Urine Glucose (UA) Negative Urine Ketones Negative Urine Blood Negative Urine Nitrite Positive Urine Bilirubin Negative Urine Urobilinogen Negative Ur Leukocyte Esterase 1+ H Urine RBC <1 Urine WBC 15 Ur Epithelial Cells Few Urine Bacteria Rare Urine Mucus Rare RPR Titer 01/16/17 07:00 WBC RBC Hgb Hct MCV MCH MCHC RDW Plt Count MPV Sodium Potassium Chloride Carbon Dioxide Anion Gap BUN Creatinine Creat Clearance w eGFR Random Glucose Calcium Total Bilirubin AST ALT Alkaline Phosphatase Total Protein Albumin Urine Color Urine Appearance Urine pH Ur Specific [place] Urine Protein Urine Glucose (UA) Urine Ketones Urine Blood Urine Nitrite Urine Bilirubin Urine Urobilinogen Ur Leukocyte Esterase Urine RBC Urine WBC Ur Epithelial Cells Urine Bacteria Urine Mucus RPR Titer Nonreactive aaox3 ambulating no acute distress Assessment: 01/17/17 12:42 withdrawal sx Plan: continue detox increase fluids
[2017-01-17] MEDS: diazePAM 5 MG TABLET PO PRN (16:59)
[2017-01-17] MEDS: THIAMINE HCL 100 MG TABLET (FP) PO SCH (23:05)
[2017-01-18] MEDS ORDERED: METHADONE HCL 40 MG DISPERSABLE TABLET ONE (04:17)
[2017-01-18] MEDS ORDERED: METHADONE HCL 5 MG TABLET ONE (04:18)
[2017-01-18] MEDS: METHADONE 160 MG, METHADONE 5 MG PO SCH (06:13)
[2017-01-18] MEDS: NITROFURANTOIN MACROCRYSTAL 50 MG CAPSULE (FP) PO SCH ×3 (06:13→17:43)
[2017-01-18] MEDS: CYCLOBENZAPRINE HCL 10 MG TABLET (FP) PO PRN ×2 (11:09→22:48)
[2017-01-18] MEDS: diazePAM 5 MG TABLET PO SCH ×2 (11:09→22:47)
[2017-01-18] MEDS: PRENATAL VITAMINS W/ FOLIC ACID TABLET (FP) PO SCH (11:09)
[2017-01-18] MEDS: NICOTINE 21 MG/24 HOURS TOPICAL PATCH TD SCH (11:10)
[2017-01-18] MEDS: NICOTINE POLACRILEX 2 MG GUM BC PRN ×2 (11:11→17:45)
--- NOTE | 2017-01-18 12:55 | PN ---
BHS Progress Note (SOAP) Subjective: poor sleep, anxious, shaky Objective: 01/18/17 12:55 Laboratory Tests 01/15/17 01/16/17 01/16/17 20:00 07:00 07:00 WBC 7.0 RBC 4.42 Hgb 11.8 Hct 35.9 MCV 81.2 MCH 26.6 MCHC 32.7 RDW 13.7 Plt Count 286 MPV 8.6 Sodium 138 Potassium 4.3 Chloride 102 Carbon Dioxide 31 D Anion Gap 5 L BUN 10 D Creatinine 0.8 Creat Clearance w eGFR > 60 Random Glucose 84 Calcium 8.9 Total Bilirubin 0.4 D AST 9 L D ALT 14 Alkaline Phosphatase 73 Total Protein 6.8 Albumin 3.6 D Urine Color Yellow Urine Appearance Slcloudy Urine pH 6.0 Ur Specific [place] 1.010 Urine Protein Negative Urine Glucose (UA) Negative Urine Ketones Negative Urine Blood Negative Urine Nitrite Positive Urine Bilirubin Negative Urine Urobilinogen Negative Ur Leukocyte Esterase 1+ H Urine RBC <1 Urine WBC 15 Ur Epithelial Cells Few Urine Bacteria Rare Urine Mucus Rare RPR Titer 01/16/17 07:00 WBC RBC Hgb Hct MCV MCH MCHC RDW Plt Count MPV Sodium Potassium Chloride Carbon Dioxide Anion Gap BUN Creatinine Creat Clearance w eGFR Random Glucose Calcium Total Bilirubin AST ALT Alkaline Phosphatase Total Protein Albumin Urine Color Urine Appearance Urine pH Ur Specific [place] Urine Protein Urine Glucose (UA) Urine Ketones Urine Blood Urine Nitrite Urine Bilirubin Urine Urobilinogen Ur Leukocyte Esterase Urine RBC Urine WBC Ur Epithelial Cells Urine Bacteria Urine Mucus RPR Titer Nonreactive Vital Signs - 24 hr 01/17/17 01/17/17 01/17/17 15:08 15:17 18:30 Temperature 97.8 F 97.8 F 98.1 F Pulse Rate 74 74 63 Respiratory 18 18 18 Rate Blood Pressure 108/58 108/58 112/56 01/17/17 01/18/17 01/18/17 23:55 00:30 03:30 Temperature 97.9 F Pulse Rate 83 Respiratory 18 18 17 Rate Blood Pressure 121/66 01/18/17 01/18/17 06:52 11:28 Temperature 97.6 F 97.7 F Pulse Rate 81 71 Respiratory 18 18 Rate Blood Pressure 125/75 119/62 Assessment: 01/18/17 12:55 withdrawal Plan: cont detox
[2017-01-18] MEDS: THIAMINE HCL 100 MG TABLET (FP) PO SCH (22:46)
[2017-01-18] MEDS: diphenhydrAMINE HCL 50 MG CAPSULE PO PRN (22:48)
[2017-01-18 23:12] VITALS: TEMP 98.1
[2017-01-19] MEDS: NITROFURANTOIN MACROCRYSTAL 50 MG CAPSULE (FP) PO SCH ×2 (00:33→05:54)
[2017-01-19] MEDS ORDERED: METHADONE HCL 40 MG DISPERSABLE TABLET ONE (04:23)
[2017-01-19] MEDS ORDERED: METHADONE HCL 5 MG TABLET ONE (04:24)
[2017-01-19] MEDS: METHADONE 160 MG, METHADONE 5 MG PO SCH (05:54)
[2017-01-19 07:37] VITALS: BP 115/70; PULSE 81
[2017-01-19] MEDS: NICOTINE POLACRILEX 2 MG GUM BC PRN (09:11)
[2017-01-19] MEDS ORDERED: diazePAM 5 MG TABLET PO SCH (10:00)
--- NOTE | 2017-01-19 10:51 | DS ---
[facility] Detox Discharge Summary Admission Date: 01/15/17 Discharge Date: 01/19/17 - History Present History: Alcohol Dependence, Cocaine Dependence, Sedative Dependence, MMTP Pertinent Past History: Hep C - Physical Exam Results Vital Signs: Vital Signs Temperature 98.1 F 01/19/17 06:00 Pulse Rate 81 01/19/17 06:00 Respiratory Rate 18 01/19/17 06:00 Blood Pressure 115/70 01/19/17 06:00 O2 Sat by Pulse Oximetry (%) Pertinent Admission Physical Exam Findings: Withdrawal Sx. Laboratory Tests 01/15/17 01/16/17 01/16/17 20:00 07:00 07:00 WBC 7.0 RBC 4.42 Hgb 11.8 Hct 35.9 MCV 81.2 MCH 26.6 MCHC 32.7 RDW 13.7 Plt Count 286 MPV 8.6 Sodium 138 Potassium 4.3 Chloride 102 Carbon Dioxide 31 D Anion Gap 5 L BUN 10 D Creatinine 0.8 Creat Clearance w eGFR > 60 Random Glucose 84 Calcium 8.9 Total Bilirubin 0.4 D AST 9 L D ALT 14 Alkaline Phosphatase 73 Total Protein 6.8 Albumin 3.6 D Urine Color Yellow Urine Appearance Slcloudy Urine pH 6.0 Ur Specific [place] 1.010 Urine Protein Negative Urine Glucose (UA) Negative Urine Ketones Negative Urine Blood Negative Urine Nitrite Positive Urine Bilirubin Negative Urine Urobilinogen Negative Ur Leukocyte Esterase 1+ H Urine RBC <1 Urine WBC 15 Ur Epithelial Cells Few Urine Bacteria Rare Urine Mucus Rare RPR Titer 01/16/17 07:00 WBC RBC Hgb Hct MCV MCH MCHC RDW Plt Count MPV Sodium Potassium Chloride Carbon Dioxide Anion Gap BUN Creatinine Creat Clearance w eGFR Random Glucose Calcium Total Bilirubin AST ALT Alkaline Phosphatase Total Protein Albumin Urine Color Urine Appearance Urine pH Ur Specific [place] Urine Protein Urine Glucose (UA) Urine Ketones Urine Blood Urine Nitrite Urine Bilirubin Urine Urobilinogen Ur Leukocyte Esterase Urine RBC Urine WBC Ur Epithelial Cells Urine Bacteria Urine Mucus RPR Titer Nonreactive labs noted - Treatment Hospital Course: Detox Protocol Followed, Detoxed Safely, Responded well, Discharged Condition Good, Rehab Referral Accepted Patient has Accepted a Rehab Referral to: [facility] - Medication Discharge Medications: Ambulatory Orders Methadone [Dolophine -] 165 mg PO DAILY 09/03/16 - Diagnosis (1) Alcohol dependence with uncomplicated withdrawal Current Visit: Yes Status: Chronic (2) Cocaine dependence, uncomplicated Current Visit: Yes Status: Chronic (3) Hepatitis C antibody test positive Current Visit: Yes Status: Chronic (4) Methadone maintenance therapy patient Current Visit: Yes Status: Chronic (5) Nicotine dependence Current Visit: Yes Status: Chronic Qualifiers: Nicotine product type: cigarettes Substance use status: uncomplicated Qualified Code(s): F17.210 - Nicotine dependence, cigarettes, uncomplicated; F17.210 - Nicotine dependence, cigarettes, uncomplicated (6) Sedative, hypnotic or anxiolytic dependence, uncomplicated Current Visit: Yes Status: Chronic - AMA Did Patient Leave Against Medical Advice: No
== END 2017-01-19 09:55 | disposition home or self-care (01) | DRG 773 ==
LOC: YASAS 12:16 → Y6N 17:36
PROVIDERS: ADMIT Internal Medicine; ATTEND Internal Medicine
PROC: HZ2ZZZZ Detoxification Services for Substance Abuse Treatment (ICD-10-PCS; principal; 2017-01-15)
DX: F10.230 Alcohol dependence with withdrawal, uncomplicated (principal); F11.20 Opioid dependence, uncomplicated; F13.20 Sedative, hypnotic or anxiolytic dependence, uncomplicated; F14.20 Cocaine dependence, uncomplicated; F17.210 Nicotine dependence, cigarettes, uncomplicated; F32.9 Major depressive disorder, single episode, unspecified; B18.2 Chronic viral hepatitis C; Z86.2 Personal history of diseases of the blood and blood-forming organs and certain disorders involving the immune mechanism
CPT/HCPCS: 36415; 80053; 81003; 81015; 85027; 86593; 87086; 87186; 93005; 93010